=== PATIENT | male | born 1970 | race Hispanic/Latino ===

== ENCOUNTER 2022-06-01 07:54 | Day surgery (SDC) | payer MEDICAID ==
[~2022-06-01] VITALS: Ht 172.7 cm; Wt 109.1 kg
[2022-06-01] VITALS (23 sets, daily range): BP systolic 110–170; BP diastolic 62–91
[2022-06-01 09:07] LABS: BASOPHILS % (AUTO) 0.3 % (0.0-5.0); EOSINOPHILS % (AUTO) 1.3 % (0.0-8.0); HEMATOCRIT 36.5 % (42-54); LYMPHOCYTES % (AUTO) 21.6 % (21.0-51.0); MEAN CORPUSCULAR HEMOGLOBIN 26.1 pg (27.0-33.0); MEAN CORPUSCULAR HGB CONC 31.2 g/dL (32.0-36.0); MEAN CORPUSCULAR VOLUME 83.5 fL (79-99); MONOCYTES % (AUTO) 7.4 % (3.0-13.0); NEUTROPHILS % (AUTO) 68.4 % (40.0-77.0); PLATELET COUNT (AUTO) 226 K/uL (130-400); RED BLOOD CELL COUNT(AUTO) 4.37 MIL/uL (4.50-6.20); RED CELL DISTRIBUTION WIDTH 14.5 % (11.0-15.5); WHITE BLOOD COUNT (AUTO) 8.8 K/uL (4.8-10.8)
[2022-06-01] MEDS ORDERED: LACTATED RINGERS 1000ML 1,000 ML IV ONE (09:23)
[2022-06-01] MEDS ORDERED: CEFAZOLIN SODIUM 1 GM VIAL ONE (09:23)
[2022-06-01 09:26] LABS: CREATININE 0.9 mg/dL (0.5-1.5); POTASSIUM 4.2 mmol/L (3.5-5.1)
[2022-06-01 09:27] LABS: INR 0.94 (0.85-1.15); PROTHROMBIN TIME 10.3 SEC (9.6-11.6)
[2022-06-01 09:28] LABS: PARTIAL THROMBOPLASTIN TIME 25.6 SEC (26.3-35.5)
[2022-06-01] MEDS ORDERED: LIDOCAINE HCL 400MG/20ML VIAL ONE (10:20)
[2022-06-01] MEDS ORDERED: BUPIVACAINE/PF 0.5% 30ML VIAL ONE (10:20)
[2022-06-01] MEDS ORDERED: LIDOCAINE HCL 2% PF 20 ML JEL DISP.SYRIN MM ONE (10:21)
[2022-06-01] MEDS ORDERED: KETOROLAC 15MG/ML VIAL (15MG/ML) ONE (10:21)
[2022-06-01] MEDS ORDERED: LACTATED RINGERS 1000ML 1,000 ML IV SCH (10:30)
[2022-06-01] MEDS ORDERED: CEFAZOLIN SODIUM 1 GM VIAL IVPB SCH (10:30)
[2022-06-01] MEDS ORDERED: LIDOCAINE PF 100MG/5ML (2%) SYRINGE 5ML ONE (11:15)
[2022-06-01] MEDS ORDERED: DEXAMETHASONE SOD PHOSPHATE 10MG/ML 1ML VIAL ONE (11:15)
[2022-06-01] MEDS ORDERED: SUCCINYLCHOLINE 200MG/10ML SYR ONE (11:15)
[2022-06-01] MEDS ORDERED: MIDAZOLAM HCL 1 MG/ML 2ML VIAL ONE (11:16)
[2022-06-01] MEDS ORDERED: PROPOFOL 10 MG/ML 20ML VIAL IV ONE ×2 (11:16→11:59)
[2022-06-01] MEDS ORDERED: ONDANSETRON 4MG INJ ONE (11:16)
[2022-06-01] MEDS ORDERED: FENTANYL CITRATE PF 50 MCG/1 ML 5ML AMP IV ONE (11:17)
[2022-06-01] MEDS ORDERED: CEFAZOLIN SODIUM 1 GM VIAL IVPB ONE (11:40)
[2022-06-01] MEDS ORDERED: KETOROLAC 30MG VIAL (30MG/ML) IM ONE (12:02)
[2022-06-01] MEDS ORDERED: LIDOCAINE 1%-EPI 1:100,000 20 ML VIAL IJ ONE (12:02)
[2022-06-01] MEDS ORDERED: BUPIVACAINE/PF 0.25% 30ML VIAL IJ ONE (12:02)
[2022-06-01] MEDS ORDERED: ROCURONIUM 10MG/1ML SYR 10 MG/ML ML ONE (12:04)
[2022-06-01] MEDS ORDERED: FENTANYL CITRATE PF 50 MCG/1 ML 2ML VIAL ONE ×2 (12:16→13:12)
[2022-06-01] MEDS ORDERED: KETOROLAC 30MG VIAL (30MG/ML) ONE (12:22)
[2022-06-01] MEDS ORDERED: MEPERIDINE-PF 25 MG/ML SYG ONE ×2 (13:04→13:12)
[2022-06-01] MEDS ORDERED: HYDROMORPHONE 1 MG INJ ONE ×2 (13:37→13:56)
== END 2022-06-01 15:30 | disposition home or self-care (01) ==
LOC: DAH 07:54
PROVIDERS: ATTEND Surgery
DX: K62.5 Hemorrhage of anus and rectum (principal); Z20.822 Contact with and (suspected) exposure to COVID-19; K62.89 Other specified diseases of anus and rectum; K64.4 Residual hemorrhoidal skin tags; K64.8 Other hemorrhoids; E66.9 Obesity, unspecified; Z79.01 Long term (current) use of anticoagulants; Z98.890 Other specified postprocedural states
CPT/HCPCS: 46250; 87426; 80048; 85025; 85610; 85730; 36415; 93005; A4663; J7030; A4606; A4452; J7120; J3010 ×3; J0690 ×2; J3490 ×5; J1170 ×2; J0330; J1100; J2250; J2405; J1885 ×3; J2175 ×2; A4930 ×2; A4215; A4223; A4222; A4221; A4335 ×2; S0020 ×2; J2001; J2704

== ENCOUNTER → 2022-09-15 | Outpatient (CLI) | payer MEDICAID ==
[~2022-09-15] VITALS: Ht 172.7 cm; Wt 101.8 kg
[~2022-09-15] MED LIST: ACET-2079 PO; ALPR0.5T8 PO; ENAL-87 PO
[2022-09-15 13:10] LABS: BASOPHILS % (AUTO) 0.3 % (0.0-5.0); EOSINOPHILS % (AUTO) 0.4 % (0.0-8.0); HEMATOCRIT 40.5 % (42-54); LYMPHOCYTES % (AUTO) 17.2 % (21.0-51.0); MEAN CORPUSCULAR HEMOGLOBIN 23.2 pg (27.0-33.0); MEAN CORPUSCULAR HGB CONC 30.6 g/dL (32.0-36.0); MEAN CORPUSCULAR VOLUME 75.8 fL (79-99); MONOCYTES % (AUTO) 5.7 % (3.0-13.0); NEUTROPHILS % (AUTO) 75.9 % (40.0-77.0); PLATELET COUNT (AUTO) 229 K/uL (130-400); RED BLOOD CELL COUNT(AUTO) 5.34 MIL/uL (4.50-6.20); RED CELL DISTRIBUTION WIDTH 18.6 % (11.0-15.5); WHITE BLOOD COUNT (AUTO) 9.4 K/uL (4.8-10.8)
[2022-09-15 13:16] VITALS: BP 173/81
[2022-09-15 13:18] LABS: CREATININE 0.9 mg/dL (0.5-1.5)
[2022-09-15 13:22] LABS: PROTHROMBIN TIME 10.9 SEC (9.6-11.6)
[2022-09-15 13:24] LABS: PARTIAL THROMBOPLASTIN TIME 27.1 SEC (26.3-35.5)
== END | disposition home or self-care (01) ==
LOC: DAH 10:00 → EDSTATUS 09-16 07:30
PROVIDERS: ATTEND Surgery
DX: K43.2 Incisional hernia without obstruction or gangrene (principal); Z20.822 Contact with and (suspected) exposure to COVID-19
CPT/HCPCS: 36415; 80048; 85025; 85610; 85730; 87426

== ENCOUNTER 2024-04-14 12:35 | Emergency (ER) | payer SELFPAY ==
[~2024-04-14] VITALS: Ht 172.7 cm; Wt 104.3 kg
[2024-04-14 12:36] VITALS: TEMP 98.6
[2024-04-14 12:46] VITALS: BP 172/80; PULSE 75; RESP 18; O2SAT 98
[2024-04-14] MEDS ORDERED: AMOX1TAB16 PO (12:51)
[2024-04-14] MEDS ORDERED: IBUP-2077 PO (12:51)
[2024-04-14] MEDS: ibuPROFEN 800 MG TAB PO ONE (12:52)
[2024-04-14] MEDS: AMOX/CLAV 875/125MG TAB PO ONE (12:54)
[2024-04-14] MEDS: teTANUS/diphthERIA TOXOID [ADULT] 0.5 ML VIAL IM ONE (12:54)
== END 2024-04-14 12:59 | disposition home or self-care (01) ==
LOC: EDH 12:35
DX: S50.811A Abrasion of right forearm, initial encounter (principal); I10 Essential (primary) hypertension; F41.9 Anxiety disorder, unspecified; Z79.899 Other long term (current) drug therapy; Z90.49 Acquired absence of other specified parts of digestive tract; Z91.041 Radiographic dye allergy status; Z98.890 Other specified postprocedural states; W55.03XA Scratched by cat, initial encounter; Y93.89 Activity, other specified; Y92.89 Other specified places as the place of occurrence of the external cause; Y99.8 Other external cause status
CPT/HCPCS: 90471; 90714